=== PATIENT | male | born 1995 | race Caucasian/White ===

== ENCOUNTER 2024-10-21 22:22 | Emergency (ER) | payer OTHER ==
[~2024-10-21] VITALS: Ht 185.4 cm; Wt 100.0 kg
[2024-10-21 22:43] VITALS: TEMP 36.7; O2SAT 100
[2024-10-21] MEDS: PANTOPRAZOLE SODIUM 40 MG/VIAL IV ONE (23:45)
[2024-10-21] MEDS: SODIUM CHLORIDE 0.9% 1,000 ML IV ONE (23:45)
[2024-10-21] MEDS: ONDANSETRON HCL 4MG/2ML INJ IV ONE (23:47)
[2024-10-21] MEDS: MORPHINE SULFATE 4 MG/ML INJ (FOR IV/IM USE) IV ONE (23:47)
[2024-10-21 23:49] LABS: BASOPHILS % 0.6 % (0.0-2.0); EOSINOPHILS % 1.6 % (0.0-5.0); HEMATOCRIT. 39.3 % (42.0-52.0); HEMOGLOBIN. 13.0 g/dL (14.0-18.0); LYMPHOCYTES % 11.7 % (20.0-50.0); MEAN PLATELET VOLUME 9.8 fl (7.4-10.4); MONOCYTES % 6.3 % (2.0-8.0); NEUTROPHILS % 79.8 % (40.0-76.0); PLATELET 151 x1000/uL (130-400); RED BLOOD CELL COUNT 4.42 mill/uL (4.7-6.1); RED CELL DISTRIBUTION WIDTH 13.3 % (11.6-14.6)
[2024-10-21 23:55] LABS: CREATININE 0.8 mg/dL (0.6-1.3)
[2024-10-21 23:56] LABS: ETHANOL BLOOD < 10 mg/dL (<10); UREA NITROGEN BLOOD 9 mg/dL (9-23)
[2024-10-21 23:57] LABS: ASPARTATE AMINOTRANSFERASE 11 IU/L (<34)
[2024-10-21 23:58] LABS: BILIRUBIN DIRECT 0.1 mg/dL (<=3.0); BILIRUBIN TOTAL 0.4 mg/dL (0.1-1.0); PROTEIN TOTAL 6.8 g/dL (6.0-8.3)
[2024-10-22] LABS: INR 1.0
[2024-10-22] MEDS ORDERED: IOHEXOL-300 100 ML BOTTLE ONE (00:54)
[2024-10-22] MEDS: KCL 20MEQ/100ML PREMIX 100 ML IV NR (02:04)
[2024-10-22] MEDS: METRONIDAZOLE 500 MG PREMIX 100 ML IV ONE (02:04)
[2024-10-22] MEDS: CEFTRIAXONE 1GM/50ML 50 ML IV ONE (02:26)
[2024-10-22 02:27] LABS: CLARITY URINE CLEAR (CLEAR); COLOR URINE YELLOW (YELLOW); GLUCOSE URINE NEGATIVE (NEGATIVE); KETONES URINE NEGATIVE (NEGATIVE); LEUKOCYTE ESTERASE URINE NEGATIVE (NEGATIVE); NITRITE URINE NEGATIVE (NEGATIVE); OCCULT BLOOD URINE NEGATIVE (NEGATIVE); PH URINE 6.0 (4.5-8.0); PROTEIN URINE NEGATIVE (NEGATIVE); SPECIFIC GRAVITY URINE 1.044 (1.005-1.030); UROBILINOGEN URINE 1.0 E.U./dL (0.2-1.0)
[2024-10-22 02:30] LABS: *AMPHETAMINES SCREEN URINE NEGATIVE (NEGATIVE); *BARBITURATES SCREEN URINE NEGATIVE (NEGATIVE); *BENZODIAZEPINES SCREEN URINE NEGATIVE (NEGATIVE); *COCAINE SCREEN URINE NEGATIVE (NEGATIVE); CANNABINOID URINE SCREEN PRESUMPTIVE POSITIVE (NEGATIVE); ECSTASY MDMA SCREEN URINE NEGATIVE (NEGATIVE); METHADONE URINE SCREEN NEGATIVE (NEGATIVE); OPIATES URINE SCREEN PRESUMPTIVE POSITIVE (NEGATIVE); PHENCYCLIDINE URINE SCREEN NEGATIVE (NEGATIVE)
[2024-10-22 03:44] VITALS: BP 116/71; PULSE 66; RESP 14; O2SAT 99
== END 2024-10-22 04:05 | disposition short-term general hospital (02) ==
LOC: ER 22:22 → CMPBEDREQ 10-23 22:26
DX: K35.80 Unspecified acute appendicitis (principal); Z79.899 Other long term (current) drug therapy
CPT/HCPCS: 80076; 80048; 80320; 83690; 85025; 85610; 36415; 96365; 96375; 99285; 80305; 81003; 74177; 96367; 96368; J2405; J2470; J2270; J7030; Q9967; J0696; J3490; J3480; G0480